=== PATIENT | male | born 1950 | race Caucasian/White ===

== ENCOUNTER → 2017-07-25 | Outpatient (CLI) | payer MEDICARE, BC ==
[2017-07-25 09:51] LABS: HEMATOCRIT 49.8 % (42.0-52.0); HEMOGLOBIN 16.7 g/dL (13.5-18.0); MEAN CELL VOLUME 92 fl (78-100); MEAN CORPUSCULAR HEMOGLOBIN 31 pg (27-31); MEAN CORPUSCULAR HGB CONC 34 g/dL (33-37); MEAN PLATELET VOLUME 9.1 fl (7.4-10.4); PLATELET COUNT 275 K/mm3 (130-400); RED BLOOD COUNT 5.44 M/mm3 (4.20-5.60); RED CELL DISTRIBUTION WIDTH 15.5 % (11.5-14.5)
[2017-07-25 10:01] LABS: LYMPHOCYTE 25 % (20-51); MONOCYTE 5 % (3-10); NEUTROPHILS 50 % (42-75)
[2017-07-25 10:14] LABS: BUN/CREATININE RATIO 21.1 (6.0-26.0); CALCIUM 9.6 mg/dL (8.4-10.2); POTASSIUM 4.7 mmol/L (3.6-5.0); TOTAL BILIRUBIN 1.2 mg/dL (0.2-1.3); TOTAL PROTEIN 7.6 g/dL (6.3-8.2)
== END ==
LOC: LAB 09:38
PROVIDERS: Nurse Practitioner Family
DX: R05 Cough (principal); I10 Essential (primary) hypertension; Z12.5 Encounter for screening for malignant neoplasm of prostate; Z13.220 Encounter for screening for lipoid disorders; Z72.0 Tobacco use

== ENCOUNTER 2018-05-04 18:03 | Emergency (ER) | payer MEDICARE, BC ==
[~2018-05-04] VITALS: Ht 185.4 cm; Wt 88.2 kg
[2018-05-04] MEDS ORDERED: LOSARTAN POTASS50 M1 PO (18:10)
[2018-05-04] MEDS ORDERED: ALEVE220 M1 PO (18:11)
[2018-05-04] MEDS ORDERED: ACID REDUCER 1150 MG PO (18:11)
[2018-05-04] MEDS ORDERED: COMBIVENT RESPI1 SPR IH (18:17)
[2018-05-04] MEDS ORDERED: RT SPIRIVA INH18 MCG IH (18:17)
[2018-05-04 21:27] VITALS: BP 165/90
== END 2018-05-04 21:27 | disposition home or self-care (01) ==
LOC: ED 18:03
DX: R11.10 Vomiting, unspecified (principal)
CPT/HCPCS: C9113; J2405; J7030

== ENCOUNTER → 2018-05-04 | Outpatient (CLI) | payer MEDICARE, BC ==
[~2018-05-04] MED LIST: ACID REDUCER 1150 MG PO; ALEVE220 M1 PO; COMBIVENT RESPI1 SPR IH; LOSARTAN POTASS50 M1 PO; RT SPIRIVA INH18 MCG IH
[2018-05-04 12:53] LABS: EOS # 0.3 (0.04-0.40); HEMOGLOBIN 17.8 g/dL (13.5-18.0); LYMPH# 2.1 (1.50-4.00); MEAN CELL VOLUME 91 fl (78-100); MEAN CORPUSCULAR HEMOGLOBIN 31 pg (27-31); MEAN CORPUSCULAR HGB CONC 34 g/dL (33-37); MEAN PLATELET VOLUME 9.4 fl (7.4-10.4); MONO # 1.2 (0.20-0.80); NEU # 9.1 (1.40-6.50); PLATELET COUNT 298 K/mm3 (130-400); RED BLOOD COUNT 5.74 M/mm3 (4.20-5.60); WHITE BLOOD COUNT 12.6 K/mm3 (4.8-10.8)
[2018-05-04 13:20] LABS: ALBUMIN 4.6 g/dL (3.5-5.0); BUN/CREATININE RATIO 31.5 (6.0-26.0); CALCIUM 9.6 mg/dL (8.4-10.2); POTASSIUM 4.5 mmol/L (3.6-5.0); TOTAL BILIRUBIN 1.3 mg/dL (0.2-1.3); TOTAL PROTEIN 8.5 g/dL (6.3-8.2)
== END ==
LOC: LAB 12:39
PROVIDERS: Nurse Practitioner Family
DX: R10.9 Unspecified abdominal pain (principal)